=== PATIENT | female | born 1950 | race Caucasian/White ===

== ENCOUNTER 2016-10-29 21:50 | Inpatient (IN) | payer MEDICARE ==
[~2016-10-29] VITALS: Ht 165.1 cm; Wt 61.4 kg
[2016-10-29 23:47] LABS: HEMATOCRIT 43.1 % (36.0-48.0); HEMOGLOBIN 14.4 g/dL (12-16); LYMPHOCYTES 24.1 % (15-50); MCH 30.8 pg (26.0-34.0); MCHC 33.4 g/dL (31.0-37.0); MCV 92.1 fL (80.0-100.0); MEAN PLATELET VOLUME 9.5 fL (7.4-10.4); NEUTROPHILS 66.5 % (40-80); PLATELET COUNT 74 10x3/uL (130-400); RBC 4.68 10x6/uL (4.00-5.40); RDW 14.1 % (11.5-14.5); WBC 4.5 10x3/uL (4.8-10.8)
[2016-10-30 00:01] LABS: ALBUMIN 3.6 g/dL (3.4-5.0); ALKALINE PHOSPHATASE 71 U/L (46-116); ALT (SGPT) 17 U/L (10-68); BILIRUBIN - TOTAL 0.41 mg/dL (0.2-1.3); CALC OSMOLALITY 274 mosm/kg (275-300); CARBON DIOXIDE 27.2 mmol/L (21.0-32.0); CHLORIDE - SERUM 104 mmol/L (98-107); CREATININE - SERUM 0.5 mg/dL (0.6-1.3); GLUCOSE 97 mg/dL (74-106); POTASSIUM - SERUM 4.1 mmol/L (3.5-5.1); PROTEIN - SERUM 7.5 g/dL (6.4-8.2); SODIUM 138 mmol/L (136-145); UREA NITROGEN 11 mg/dL (7-18); eGFR NON AFRICAN AMERICAN > 90 mL/min (90-120)
[2016-10-30] MEDS ORDERED: KLONOPIN1 MG PO (00:58)
[2016-10-30] MEDS ORDERED: MORPHINE IMMEDI30 M1 PO (01:00)
--- NOTE | 2016-10-30 01:15 | NUR ---
RECIEVED TO ROOM 2208, VIA [facility] FROM ER. AWAKE,ALERT,ORIENTED. DX.DISTAL RADIUS/ULNA FX.PER SERVICES OF DR LOCK. LEFT ARM WITH SPLINT INPLACE AND UP ON PILLOW. COMPLAINS OF NUMBNESS TO FINGERS.ABLE TO MOVE FINGES..SL TO RIGHT AC. CL IN REACH. ORIENTED TO ROOM.
[2016-10-30 01:32] VITALS: BP 137/73; Ht 165.1 cm; Wt 61.4 kg
[2016-10-30 04:00] VITALS: BP 141/77
--- NOTE | 2016-10-30 05:15 | NUR ---
RESTING QUIETLY. NO DISTRESS NOTED. CL IN REACH. REMAINS NPO
[2016-10-30 07:45] VITALS: BP 146/78
--- NOTE | 2016-10-30 09:12 | NUR ---
PT SEEN THIS AM. LEFT WRIST IN BLUE SPLINT BUT IS SWOLLEN AND STATES FINGERS ARE NUMB BUT ARE PINK WARM AND ABLE TO WIGGLE THEM. STATES PAIN IS 10/10 AND BENCH INSPECTOR INITIATED. NPO FOR POSSIBLE SURG. SUGRICAL HIBICLENS BATH GIVEN PER MACHINE STACKER. CALL LIGHT IN REACH. BED ALARM ON. FALL PRECAUTIONS PLACED
--- NOTE | 2016-10-30 10:27 | NUR ---
Patient Name: KRISTAL MORENO Admission Status: ER Accout number: [id number] Admission Date: 10-30-2016 : 1950 Admission Diagnosis: Attending: LEXIE Current LOS: 1 Anticipated DC Date: Planned Disposition: Home Primary Insurance: MEDICARE A & B Discharge Planning Comments: CM met with patient to assess discharge planning needs. Patient currently lives home alone where she is independent. She states that she has one son who comes and stays with her when he is in town, and another son (Yissel Tucker) who will come and pick her up upon discharge. Patient denies any use of DME or home health services and does not feel like she will need any when she goes home. CM will continue to follow and assist as needed. PCP: [facility]: [facility] Yissel Tucker (son) Software Sales Consultant: Rae Gallego * Is the patient Alert and Oriented? Yes 0 * How many steps to enter\exit or inside your home? 4 0 * PCP [facility] 0 * Pharmacy [facility] 0 * Preadmission Environment Home Alone 0 * ADLs Independent 0 * Equipment None 0 * List name and contact numbers for known caregivers / representatives who currently or will assist patient after discharge: YISSEL TUCKER (SON) 0 * Additional services required to return to the preadmission environment? No 0 * Can the patient safely return to the preadmission environment? Yes 0 * Has this patient been hospitalized within the prior 30 days at any hospital? No 0 Grand Total: 0
[2016-10-30 12:08] VITALS: BP 157/63
--- NOTE | 2016-10-30 19:51 | NUR ---
PT CAME TO HOLDING WITH MULTIPLE EARRINGS IN [place]. EARS. I EXPLAINED TO HER ABOUT THE PROBLEM WITH THE CAUTERY AND METAL IN HER BODY. SHE STATED THAT SHE HAD SUPER GLUED THEM IN AND COULD NOT REMOVE THEM.
--- NOTE | 2016-10-30 20:20 | NUR ---
RECIEVED FOR RR.AWAKE BUT DROWSY. NO COMPLAINTS OF PAIN. BRIAN WRAP DRSG INTACT TO LEFT ARM. FINGERS WARM.UNABLE TO MOVE FINGERS AT THIS TIME.IV INFUSING TO RAC WITHOUT REDNESS OR EDEMA NOTED.CL IN REACH. FAMILY AT BEDSIDE.
[2016-10-30 20:39] VITALS: BP 125/87
--- NOTE | 2016-10-31 02:21 | NUR ---
RESTING QUIETLY. NO DISTRESS NOTED. FAMILY REMAINS AT BEDSIDE
--- NOTE | 2016-10-31 03:38 | NUR ---
PATIENT RESTING IN BED WITH EYES CLOSED AND NO VISIBLE SIGNS OF DISTRESS. BED IN LOWEST POSITION AND CALL LIGHT WITHIN REACH.
[2016-10-31 04:00] VITALS: BP 160/81
[2016-10-31 05:19] LABS: HEMATOCRIT 39.7 % (36.0-48.0); HEMOGLOBIN 13.1 g/dL (12-16)
--- NOTE | 2016-10-31 05:25 | NUR ---
EYES CLOSED RESP EVEN AND UNLABORED. NO DISTRESS NOTED. CL IN REACH
--- NOTE | 2016-10-31 07:30 | NUR ---
RECIEVED PT DURING WALKING ROUNDS. PT RESTING IN BED WITH NO COMPLAINTS OF PAIN OR DISCOMFORT AT THIS TIME. ASSESSMENT DONE PER FLOWSHEET. BED IN LOW POSITION AND CALL LIGHT WITHIN REACH. WILL CONTINUE TO MONITOR.
[2016-10-31 08:09] VITALS: BP 157/63
[2016-10-31] MEDS ORDERED: MORPHINE SULFAT30 M4 PO (08:43)
--- NOTE | 2016-10-31 10:10 | NUR ---
DISCONTINUED BILINGUAL MEDICAL RECEPTIONIST AND IV FLUIDS AT THIS TIME. PT AWAITING DISCHARGE.
--- NOTE | 2016-10-31 10:42 | NUR ---
Patient being discharged today. Spoke with patients Granddaughter (Aide). She stated that her neighbor Prince Yung will be driving her home. They denies any HH or CM needs.
--- NOTE | 2016-10-31 13:00 | NUR ---
IV REMOVED, CATH INTACT. PT DISCHARGED VIA WHEELCHAIR TO HOME WITH A FAMILY MEMBER.
== END 2016-10-31 13:01 | disposition home or self-care (01) | DRG 512 ==
LOC: D.ER 21:50 → OBSVTIME 23:34 → D.MS 23:34
PROVIDERS: Family Medicine; ADMIT Orthopaedic Surgery
PROC: 0PSJ04Z Reposition Left Radius with Internal Fixation Device, Open Approach (ICD-10-PCS; principal; 2016-10-30 15:30)
DX: S52.502A Unspecified fracture of the lower end of left radius, initial encounter for closed fracture (principal); S52.202A Unspecified fracture of shaft of left ulna, initial encounter for closed fracture; W19.XXXA Unspecified fall, initial encounter; F41.0 Panic disorder [episodic paroxysmal anxiety]; D69.6 Thrombocytopenia, unspecified; K21.9 Gastro-esophageal reflux disease without esophagitis; G89.29 Other chronic pain; M54.9 Dorsalgia, unspecified; K75.9 Inflammatory liver disease, unspecified; F17.200 Nicotine dependence, unspecified, uncomplicated